=== PATIENT | male | born 1955 | race Caucasian/White ===

== ENCOUNTER 2016-07-30 05:53 | Observation (INO) ==
[2016-07-30] MEDS ORDERED: Aspirin 81 MG TAB.CHEW PO ONE (06:06)
--- NOTE | 2016-07-30 06:13 | Emergency Department Note ---
Disposition Clinical Impression: Chest pain Qualifiers: Chest pain type: unspecified Qualified Code(s): R07.9 - Chest pain, unspecified Disposition: Admitted As Inpatient Condition: Good Chest Pain HPI - General Chief Complaint: ED Chest Pain Stated Complaint: Chest Pressure Source: patient Mode of arrival: ambulatory Limitations: no limitations Vital Signs Reviewed: Yes Nursing Notes Reviewed: Yes - History of Present Illness Pt complaint: chest pain Onset (ago): week(s) (1) Duration: intermittent Onset: during rest Pain Location: substernal Quality: other (pressure) Pain Radiation: none Improves with: nothing Worsens with: nothing Associated symptoms: Reports: palpitations. Denies: vomiting, diaphoresis, dyspnea, sense of impending doom, syncope, leg swelling Treatments prior to arrival chest pain: aspirin - Related Data Home Medications Medication Instructions Recorded Confirmed Amitriptyline HCl 75 mg PO HS 07/30/16 07/30/16 Atenolol [Tenormin] 50 mg PO BID 07/30/16 07/30/16 Atorvastatin Calcium [Lipitor] 20 mg PO QAM 07/30/16 07/30/16 Baclofen [Lioresal] 10 mg PO TID 07/30/16 07/30/16 Lisinopril [Zestril] 40 mg PO HS 07/30/16 07/30/16 Ranitidine HCl [Zantac] 150 mg PO BID PRN 07/30/16 07/30/16 Zolpidem Tartrate [Ambien Cr] 12.5 mg PO HS PRN 07/30/16 07/30/16 Allergies Allergy/AdvReac Type Severity Reaction Status Date / Time No Known Allergies Allergy Verified 07/30/16 05:57 All systems ED: reviewed and negative except as stated. Constitutional: Denies: fever, chills, weakness Respiratory: Denies: cough, dyspnea, wheezes, hemoptysis Gastrointestinal: Denies: nausea, vomiting Chest Pain PMH - Past Medical History Medical history: Reports: hyperlipidemia, hypertension, other - Social History Smoking Status: Never smoker Alcohol use: Reports: heavy Drug use: Reports: none Physical Exam - General Limitations: no limitations General appearance: alert, in no apparent distress - Head Head exam: atraumatic, normocephalic, normal inspection - Eye Eye exam: Present: normal appearance, PERRL, EOMI - Expanded Eye Exam Pupils: Left: reactive - ENT ENT exam: normal exam, normal oropharynx, mucous membranes moist - Expanded ENT Exam External ear exam: Present: normal external inspection Mouth exam: Present: normal external inspection Teeth exam: Present: normal inspection Throat exam: Present: normal inspection - Neck Neck exam: Present: normal inspection, full ROM, trachea midline - Chest Chest inspection: Present: normal inspection, symmetric chest wall rise - Respiratory Respiratory exam: Present: normal lung sounds bilaterally - Cardiovascular Cardiovascular exam: Present: regular rate, normal rhythm, normal heart sounds - Abdominal Exam Abdominal exam: Present: soft, Non-Tender. Absent: tenderness, distention, guarding, rebound, rigidity - Extremities Exam Extremities exam: Present: normal inspection, full ROM. Absent: tenderness, pedal edema - Expanded Upper Extremity Exam Shoulder exam: Present: normal inspection, full ROM Arm exam: Present: normal inspection, full ROM Elbow exam: Present: normal inspection, full ROM Forearm/Wrist exam: Present: normal inspection, full ROM Hand exam: Present: normal inspection, full ROM Vascular exam: Normal: capillary refill, radial pulse - Expanded Lower Extremity Exam Hip/Pelvis exam: Present: normal inspection, full ROM Upper leg exam: Present: normal inspection, full ROM Knee exam: Present: normal inspection, full ROM Lower leg exam: Present: normal inspection, full ROM Ankle exam: Present: normal inspection, full ROM Foot/toe exam: Present: normal inspection, full ROM Neurovascular/Tendon exam: Absent: motor deficit, sensory deficit, tendon deficit - Back Exam Back exam: Present: normal inspection, full ROM. Absent: tenderness - Neurological Exam Neurological exam: Present: alert, oriented X3 - Expanded Neurological Exam Patient oriented to: Present: person, place, time Coma Scale Eye Opening: Spontaneous Coma Scale Motor Response: Obeys Commands Coma Scale Verbal Response: Oriented Coma Scale Total: 15 - Psychiatric Psychiatric exam: Present: normal affect, normal mood - Skin Skin exam: Present: warm, dry, intact, normal color Course Vital Signs Temperature 97.4 F L 07/30/16 05:55 Pulse Rate 86 07/30/16 05:55 Respiratory Rate 18 07/30/16 05:55 Blood Pressure 149/91 07/30/16 05:55 O2 Sat by Pulse Oximetry 99 07/30/16 05:55 Temperature 97.7 F 07/30/16 23:52 Pulse Rate 71 07/30/16 23:52 Respiratory Rate 14 07/30/16 23:52 Blood Pressure 120/75 07/30/16 23:52 O2 Sat by Pulse Oximetry 96 07/30/16 23:52 Oxygen Delivery Oxygen Delivery Room Air Chest Pain - Differential Diagnosis Likely: stable angina, unstable angina pectoris, atypical chest pain, st elevation myocardial infraction, chest pain - Lab Data Result diagrams: 07/30/16 06:25 07/30/16 06:25 Lab Results 07/30/16 07/30/16 07/30/16 Range/Units 06:25 06:25 06:25 WBC 7.3 (4.3-11.1) K/mcL RBC 4.48 (4.19-5.50) M/mcL Hgb 13.5 (12.9-16.9) g/dL Hct 40.1 (37.5-50.1) % MCV 89.5 (83.0-100.0) fL MCH 30.1 (28.0-33.3) pg MCHC 33.7 (31.6-35.5) g/dL RDW 12.9 (11.5-14.5) % Plt Count 245 (140-400) K/mcL MPV 9.5 (9.4-12.4) fL Immature Gran % 0.8 (0-4) % Seg Neutrophils % 66.8 % Lymphocytes % 21.9 % Monocytes % 7.9 % Eosinophils % 1.9 % Basophils % 0.7 % Neutrophils # 4.9 (1.6-8.9) K/mcL Lymphocytes # 1.6 (0.6-4.6) K/mcL Monocytes # 0.6 (0.0-1.3) K/mcL Eosinophils # 0.1 (0.0-0.6) K/mcL Basophils # 0.1 (0.0-0.2) K/mcL PT 10.3 (9.4-12.1) Seconds INR 1.0 APTT 31.9 (26.0-36.0) Seconds Sodium 137 (136-145) mEq/L Potassium 4.5 (3.5-4.5) mEq/L Chloride 105 (98-109) mEq/L Carbon Dioxide 20 (19-29) mEq/L BUN 22 (8-26) mg/dL Creatinine 1.00 (0.72-1.25) mg/dL Est GFR ( Amer) > 60 (> 60) Est GFR (Non-Af Amer) > 60 (> 60) BUN/Creatinine Ratio 22 (6-26) Glucose 113 H (70-99) mg/dL Est Mean Plasma Glucose mg/dl Hemoglobin A1c ( - 5.6) % Calculated Osmolality 288 (280-300) Calcium 9.4 (8.6-10.8) mg/dL Troponin I (0-0.03) ng/mL TSH 4.281 (0.350-4.840) mcIU/mL 07/30/16 07/30/16 Range/Units 06:25 06:25 WBC (4.3-11.1) K/mcL RBC (4.19-5.50) M/mcL Hgb (12.9-16.9) g/dL Hct (37.5-50.1) % MCV (83.0-100.0) fL MCH (28.0-33.3) pg MCHC (31.6-35.5) g/dL RDW (11.5-14.5) % Plt Count (140-400) K/mcL MPV (9.4-12.4) fL Immature Gran % (0-4) % Seg Neutrophils % % Lymphocytes % % Monocytes % % Eosinophils % % Basophils % % Neutrophils # (1.6-8.9) K/mcL Lymphocytes # (0.6-4.6) K/mcL Monocytes # (0.0-1.3) K/mcL Eosinophils # (0.0-0.6) K/mcL Basophils # (0.0-0.2) K/mcL PT (9.4-12.1) Seconds INR APTT (26.0-36.0) Seconds Sodium (136-145) mEq/L Potassium (3.5-4.5) mEq/L Chloride (98-109) mEq/L Carbon Dioxide (19-29) mEq/L BUN (8-26) mg/dL Creatinine (0.72-1.25) mg/dL Est GFR ( Amer) (> 60) Est GFR (Non-Af Amer) (> 60) BUN/Creatinine Ratio (6-26) Glucose (70-99) mg/dL Est Mean Plasma Glucose 108 mg/dl Hemoglobin A1c 5.4 ( - 5.6) % Calculated Osmolality (280-300) Calcium (8.6-10.8) mg/dL Troponin I 0.00 (0-0.03) ng/mL TSH (0.350-4.840) mcIU/mL
[2016-07-30 06:38] LABS: Prothrombin Time 10.3 Seconds (9.4-12.1)
[2016-07-30 06:41] LABS: Activated Partial Thrombo Time 31.9 Seconds (26.0-36.0)
[2016-07-30 06:46] LABS: BUN/Creatinine Ratio 22 (6-26); Blood Urea Nitrogen 22 mg/dL (8-26); Calcium 9.4 mg/dL (8.6-10.8); Carbon Dioxide 20 mEq/L (19-29); Chloride 105 mEq/L (98-109); Glucose 113 mg/dL (70-99); Osmolality,Calculated 288 (280-300); Potassium 4.5 mEq/L (3.5-4.5); Sodium 137 mEq/L (136-145); eGFR For African Americans > 60 (> 60); eGFR For Non-African Americans > 60 (> 60)
[2016-07-30 07:08] LABS: Thyroid Stimulating Hormone 4.281 mcIU/mL (0.350-4.840)
[2016-07-30 07:13] LABS: Basophils # 0.1 K/mcL (0.0-0.2); Basophils % 0.7 %; Eosinophils # 0.1 K/mcL (0.0-0.6); Eosinophils % 1.9 %; Hematocrit 40.1 % (37.5-50.1); Hemoglobin 13.5 g/dL (12.9-16.9); Immature Granulocytes % 0.8 % (0-4); Lymphocytes # 1.6 K/mcL (0.6-4.6); Lymphocytes % 21.9 %; Mean Corpuscular HGB Conc 33.7 g/dL (31.6-35.5); Mean Corpuscular Hemoglobin 30.1 pg (28.0-33.3); Mean Corpuscular Volume 89.5 fL (83.0-100.0); Mean Platelet Volume 9.5 fL (9.4-12.4); Monocytes # 0.6 K/mcL (0.0-1.3); Monocytes % 7.9 %; Neutrophils # 4.9 K/mcL (1.6-8.9); Platelet Count 245 K/mcL (140-400); Red Blood Count 4.48 M/mcL (4.19-5.50); Red Cell Distribution Width 12.9 % (11.5-14.5); Segmented Neutrophils % 66.8 %
--- NOTE | 2016-07-30 07:36 | Emergency Department Note ---
Disposition Clinical Impression: Chest pain Qualifiers: Chest pain type: unspecified Qualified Code(s): R07.9 - Chest pain, unspecified Disposition: Admitted As Inpatient Condition: Good Referrals: NO,PCP [Primary Care Provider] - Time of Disposition: 08:[address] [facility] - General Chief complaint: ED Chest Pain Stated complaint: Chest Pressure Time Seen by Provider: 07/30/16 07:07 Source: patient Mode of arrival: ambulatory Limitations: no limitations - History of Present Illness Pain Scale: 2 - Related Data Allergies Allergy/AdvReac Type Severity Reaction Status Date / Time No Known Allergies Allergy Verified 07/30/16 05:57 Constitutional: Denies: fever, chills, weakness Respiratory: Denies: cough, dyspnea, wheezes, hemoptysis Gastrointestinal: Denies: nausea, vomiting Past Medical History - Past Medical History Medical history: Reports: hyperlipidemia, hypertension, other - Social History Smoking Status: Never smoker Smokeless Tobacco Status: No Alcohol use: Reports: heavy Drug use: Reports: none Physical Exam - General Limitations: no limitations General appearance: alert, in no apparent distress Course Course Narrative: 61-year-old multiple risk factors comes in complaining of intermittent chest pain. Workup here in the emergency department is negative. - Reevaluation(s) Reevaluation #1: 61-year-old gentleman with risk factors of age, borderline diabetes, hypertension, family history who comes in with a 3 to four-day history of intermittent exertional chest tightness. Patient has had no recent cardiac workup. Workup here in the ER is negative we will admit for rule out. Time: 08:11 - Consultations Consultation #1: Discussed with Dr. Layne, admit. Time: 08:09 Vital Signs Temperature 97.4 F L 07/30/16 05:55 Pulse Rate 86 07/30/16 05:55 Respiratory Rate 18 07/30/16 05:55 Blood Pressure 149/91 07/30/16 05:55 O2 Sat by Pulse Oximetry 99 07/30/16 05:55 Temperature 97.4 F L 07/30/16 05:55 Pulse Rate 61 07/30/16 07:38 Respiratory Rate 16 07/30/16 07:38 Blood Pressure 134/87 07/30/16 07:38 O2 Sat by Pulse Oximetry 98 07/30/16 07:38 Oxygen Delivery Oxygen Delivery Room Air Medical Decision Making - Lab Data Result diagrams: 07/30/16 06:25 07/30/16 06:25 Lab Results 07/30/16 07/30/16 07/30/16 Range/Units 06:25 06:25 06:25 WBC 7.3 (4.3-11.1) K/mcL RBC 4.48 (4.19-5.50) M/mcL Hgb 13.5 (12.9-16.9) g/dL Hct 40.1 (37.5-50.1) % MCV 89.5 (83.0-100.0) fL MCH 30.1 (28.0-33.3) pg MCHC 33.7 (31.6-35.5) g/dL RDW 12.9 (11.5-14.5) % Plt Count 245 (140-400) K/mcL MPV 9.5 (9.4-12.4) fL Immature Gran % 0.8 (0-4) % Seg Neutrophils % 66.8 % Lymphocytes % 21.9 % Monocytes % 7.9 % Eosinophils % 1.9 % Basophils % 0.7 % Neutrophils # 4.9 (1.6-8.9) K/mcL Lymphocytes # 1.6 (0.6-4.6) K/mcL Monocytes # 0.6 (0.0-1.3) K/mcL Eosinophils # 0.1 (0.0-0.6) K/mcL Basophils # 0.1 (0.0-0.2) K/mcL PT 10.3 (9.4-12.1) Seconds INR 1.0 APTT 31.9 (26.0-36.0) Seconds Sodium 137 (136-145) mEq/L Potassium 4.5 (3.5-4.5) mEq/L Chloride 105 (98-109) mEq/L Carbon Dioxide 20 (19-29) mEq/L BUN 22 (8-26) mg/dL Creatinine 1.00 (0.72-1.25) mg/dL Est GFR ( Amer) > 60 (> 60) Est GFR (Non-Af Amer) > 60 (> 60) BUN/Creatinine Ratio 22 (6-26) Glucose 113 H (70-99) mg/dL Calculated Osmolality 288 (280-300) Calcium 9.4 (8.6-10.8) mg/dL Troponin I (0-0.03) ng/mL TSH 4.281 (0.350-4.840) mcIU/mL 07/30/16 Range/Units 06:25 WBC (4.3-11.1) K/mcL RBC (4.19-5.50) M/mcL Hgb (12.9-16.9) g/dL Hct (37.5-50.1) % MCV (83.0-100.0) fL MCH (28.0-33.3) pg MCHC (31.6-35.5) g/dL RDW (11.5-14.5) % Plt Count (140-400) K/mcL MPV (9.4-12.4) fL Immature Gran % (0-4) % Seg Neutrophils % % Lymphocytes % % Monocytes % % Eosinophils % % Basophils % % Neutrophils # (1.6-8.9) K/mcL Lymphocytes # (0.6-4.6) K/mcL Monocytes # (0.0-1.3) K/mcL Eosinophils # (0.0-0.6) K/mcL Basophils # (0.0-0.2) K/mcL PT (9.4-12.1) Seconds INR APTT (26.0-36.0) Seconds Sodium (136-145) mEq/L Potassium (3.5-4.5) mEq/L Chloride (98-109) mEq/L Carbon Dioxide (19-29) mEq/L BUN (8-26) mg/dL Creatinine (0.72-1.25) mg/dL Est GFR ( Amer) (> 60) Est GFR (Non-Af Amer) (> 60) BUN/Creatinine Ratio (6-26) Glucose (70-99) mg/dL Calculated Osmolality (280-300) Calcium (8.6-10.8) mg/dL Troponin I 0.00 (0-0.03) ng/mL TSH (0.350-4.840) mcIU/mL
[2016-07-30] MEDS ORDERED: Naloxone 0.4 MG/ML INJ IVP PRN (10:46)
[2016-07-30] MEDS ORDERED: Acetaminophen 325 MG TABLET PO PRN (10:46)
[2016-07-30] MEDS ORDERED: Ondansetron 4 MG/2 ML VIAL IVP PRN (10:46)
[2016-07-30] MEDS ORDERED: MOM Conc 10 ML UD.LIQ PO PRN (10:46)
[2016-07-30] MEDS ORDERED: *HR* HYDROcodone/Acet 5/325 mg TABLET PO PRN (10:46)
[2016-07-30] MEDS ORDERED: Famotidine 20 MG TABLET PO PRN (10:53)
--- NOTE | 2016-07-30 11:02 | Internal Med History&Physical ---
<Addie Aguayo - Last Filed: 07/30/16 12:17> Date of Encounter: 07/30/16 Time of Encounter: 10:20 Assessment and Plan (1) Chest pain Current visit: Yes Status: Acute Pt has 1 week history of midsternal chest pain without radiation, SOB, diaphoresis, or n/v. Worse in the afternoon at work, lasts for hours. Pain does not get worse with movement, breathing,exertion, or palpation. Pt states that he is on Zantac 150mg po bid for GERD and that pain may be related to that. Epigastric area is tender to palpation, but it does not recreate the pain. Takes beta melany daily for 30+ year history of tachycardia. Pt has risk factors for heart disease including hyperlipidemia, hypertension, and what he describes as elevating fasting blood glucose. Continuous cardiac monitoring Echo Stress test Asa 81mg po daily Continue home medications including Zantac Serial troponins Monitor labs A1c Qualifiers: Chest pain type: unspecified Qualified Code(s): R07.9 - Chest pain, unspecified (2) GERD (gastroesophageal reflux disease) Current visit: Yes Status: Chronic Pt with history of GERD. Was taking Protonix, but was concerned about bone loss , so he switched to Zantac 150mg po BID. Denies worsening or change in symptoms , however, epigastric area is tender to palpation, and reflux cannot be ruled out as the cause of his chest pain. Could discuss with pt adding another medication for control prior to discharge. Continue Zantac 150mg po BID Monitor labs Qualifiers: Esophagitis presence: esophagitis presence not specified Qualified Code(s) : K21.9 - Gastro-esophageal reflux disease without esophagitis Internal Medicine - H&P: HPI Chief complaint: chest pain Admitted From: Home Plans for Post Hospital Care: Home History of present illness: Mr. Desir is a 61 year old male with hyperlipidemia and HTN , admitted for 1 week history of midsternal chest pressure without radiation or other associated symptoms. Rates 5/10. Pressure primarily occurs later in the afternoon when he is at work and lasts for hours. There is no correlation with food intake or exertion. Pain is not reproduceable with palpation, inspiration, or movement. Past Med Surg Social Fam HX - Past Medical History Medical history: hyperlipidemia, hypertension, other - Past Surgical History Surgical History: orthopedic, other - Social History Smoking Status: Never smoker Smokeless Tobacco Status: No Alcohol use: heavy Drug use: none Internal Medicine - H&P: Meds Amitriptyline HCl 75 mg PO HS 07/30/16 [History] Atenolol [Tenormin] 50 mg PO BID 07/30/16 [History] Atorvastatin Calcium [Lipitor] 20 mg PO QAM 07/30/16 [History] Baclofen [Lioresal] 10 mg PO TID 07/30/16 [History] Lisinopril [Zestril] 40 mg PO HS 07/30/16 [History] Ranitidine HCl [Zantac] 150 mg PO BID PRN 07/30/16 [History] Zolpidem Tartrate [Ambien Cr] 12.5 mg PO HS PRN 07/30/16 [History] Allergies No Known Allergies Allergy (Verified 07/30/16 05:57) All Systems PM: A 10-system review of systems was performed and is negative for pertinent findings except as documented above in the HPI. - Constitutional Constitutional: no chills, no fever(s) - Cardiovascular Cardiovascular ROS IM: chest pain, edema, no dyspnea, no palpitations Additional comments: Pt normally has pedal edema, has not become worse. - Respiratory Respiratory: no cough, no wheezing, no pain on inspiration, no chest congestion - Gastrointestinal Gastrointestinal: no diarrhea, no nausea, no vomiting - Musculoskeletal Musculoskeletal ROS IM: no numbness, no tingling - Constitutional Vitals: Temp Pulse Resp BP Pulse Ox 98.0 F 68 15 142/88 98 07/30/16 09:07 07/30/16 09:07 07/30/16 09:07 07/30/16 09:07 07/30/16 09:07 General appearance: Present: A&O X 3, pleasant, answers questions appropriately - Neck Neck exam general surgery: Present: normal inspection. Absent: tenderness, thyromegaly - Respiratory Respiratory exam: Present: CTAB. Absent: accessory muscle use, chest wall tenderness, decreased breath sounds, rhonchi, wheezes - Cardiovascular Cardiovascular exam: Present: RRR, +S1, +S2. Absent: diastolic murmur, JVD, systolic murmur - GI/Abdominal GI/Abdominal exam: Present: distended, normal bowel sounds, soft. Absent: pulsatile mass, tenderness - Extremities Exam Extremities exam: Present: full ROM, pedal edema, warm, radial pulses palpable and symetrical. Absent: calf tenderness Additional comments: +1 non-pitting edema to BLE, normal for pt. +2 pedal pulses JESI. - Neurological Exam Neurological exam: Present: alert, oriented X3, no focal deficits - Skin Skin exam: Present: dry, normal color, warm Internal Med - H&P Results - Labs CBC & Chem 7: 07/30/16 06:25 07/30/16 06:25 - EKG Data EKG shows normal: sinus rhythm - EKG Data Prior EKG available for review: yes When compared to previous EKG: there is no significant change Interpretation IM: normal EKG <Fox Layne - Last Filed: 07/30/16 16:30> Date of Encounter: 07/30/16 Internal Medicine - H&P: HPI History of present illness: Mr. Desir is a 61 year old male All Systems PM: A 10-system review of systems was performed and is negative for pertinent findings except as documented above in the HPI. - Constitutional Vitals: Temp Pulse Resp BP Pulse Ox 97.9 F 74 16 143/82 96 07/30/16 15:27 07/30/16 15:27 07/30/16 15:27 07/30/16 15:27 07/30/16 15:27 Internal Med - H&P Results - Labs CBC & Chem 7: 07/30/16 06:25 07/30/16 06:25 Labs: Cardiac Enzymes 07/30/16 Range/Units 12:28 Troponin I 0.00 (0-0.03) ng/mL - Attending Attestation I examined this patient and my medical decision-making was reviewed with the Advanced Practice Provider. I agree with the documented findings, disposition and treatment plan as described except to the extent set forth below. On exam he is in no Distress, heart regular rhythm S1-S2 with no murmurs or gallops. Lungs are clear. Plan: Atypical chest pain we will rule out ACS, place on telemetry, obtain stress test in the morning, obtain echocardiogram.
[2016-07-30] MEDS ORDERED: Baclofen 10 MG TABLET PO PRN (11:21)
[2016-07-30 12:08] LABS: Hemoglobin A1C 5.4 %
[2016-07-30] MEDS ORDERED: Baclofen 10 MG TABLET PO SCH (15:00)
[2016-07-30] MEDS ORDERED: Lisinopril 20 MG TABLET PO SCH (21:00)
[2016-07-31] MEDS ORDERED: Temazepam 15 MG CAPSULE PO ONE (01:35)
[2016-07-31 05:38] LABS: Basophils % 0.5 %; Eosinophils # 0.2 K/mcL (0.0-0.6); Eosinophils % 1.9 %; Hematocrit 37.9 % (37.5-50.1); Hemoglobin 12.9 g/dL (12.9-16.9); Immature Granulocytes % 0.7 % (0-4); Lymphocytes # 1.8 K/mcL (0.6-4.6); Lymphocytes % 22.1 %; Mean Corpuscular Hemoglobin 30.3 pg (28.0-33.3); Mean Platelet Volume 9.3 fL (9.4-12.4); Monocytes # 0.8 K/mcL (0.0-1.3); Monocytes % 9.8 %; Neutrophils # 5.4 K/mcL (1.6-8.9); Platelet Count 200 K/mcL (140-400); Red Blood Count 4.26 M/mcL (4.19-5.50)
[2016-07-31 05:55] LABS: BUN/Creatinine Ratio 17 (6-26); Blood Urea Nitrogen 18 mg/dL (8-26); Calcium 8.9 mg/dL (8.6-10.8); Carbon Dioxide 22 mEq/L (19-29); Chloride 107 mEq/L (98-109); Glucose 107 mg/dL (70-99); Osmolality,Calculated 288 (280-300); Potassium 4.1 mEq/L (3.5-4.5); Sodium 138 mEq/L (136-145); eGFR For African Americans > 60 (> 60); eGFR For Non-African Americans > 60 (> 60)
[2016-07-31 07:21] VITALS: BP 109/67
[2016-07-31] MEDS ORDERED: Aspirin 81 MG TAB.CHEW PO SCH (09:00)
--- NOTE | 2016-07-31 09:40 | ECHO - Doppler Report ---
Echocardiogram Name: FAIZAN YAÑEZ Date of Study: 07/30/2016 Date: 1955 Ht: 66.0 in Medical Record#: [id number] Age: 61 Wt: 200.0 lb Gender: Male BSA: 2 Order #: [id number] Location: [facility] Room #: [id number] Reading Physician: Lucio Noonan MD, [facility] Dehydrating Press Operator: Isidra Jim RDCS Ordering Physician: Addie Aguayo CNP Primary Physician: None Indications: Chest pain Impressions: Normal left ventricular size and systolic function, LVEF 55%. Mild left ventricular diastolic dysfunction. Normal right ventricular size and function. No significant valvular dysfunction. Unable to estimate RVSP due to lack of TR jet. Left Ventricular Wall Motion: Rest Echo Findings All wall segments showed normal motion. Findings: Study Quality * Suboptimal echo windows. ECG Findings * Normal sinus rhythm. Left Ventricle * Normal left ventricular size and systolic function, LVEF 55%. * Normal LV wall thickness. * Mild left ventricular diastolic dysfunction. Right Ventricle * Normal right ventricular size and function. Left Atrium * Normal left atrial size. Right Atrium * Normal right atrial size. Aorta * Normally sized aortic root. Pericardium * There is no pericardial effusion present. IVC * The IVC is not well evaluated. Aortic Valve * Aortic valve not well visualized. Appears trileaflet. * Normal aortic valve function. Mitral Valve * Normal mitral valve structure. * Normal mitral valve function. Tricuspid Valve * Tricuspid valve not well visualized. * Normal tricuspid valve function. * Unable to estimate RVSP due to lack of TR jet. Pulmonic Valve * Pulmonic valve not well visualized. * Normal pulmonic valve function. History Hypertension Hypercholesteremia Measurements: BP: 143/ 82 2D Normal Values RVIDd: 3.21 cm IVSd: .80 cm 0.6 - 1.0 cm LVIDd: 5.50 cm 3.7 - 5.6 cm LVPWd: 1.00 cm 0.6 - 1.1 cm LVIDs: 3.60 cm 1.5 - 3.6 cm AO: 3.00 cm < 4.0 cm LA volume: 36 Mitral Valve Peak E:.66 m/sec Peak A:.89 m/sec E/A Ratio:0.7 Updated by Lucio Noonan MD, [facility] on 07/31/2016 9:35:29 AM Wall Motion Trinh: 1=Normal, 2=Hypokinesis, 3=Akinesis, 4=Dyskinesis, 5=Aneurysmal, 6=Hyperkinetic, X=Not Visualized (Blank)=Missing
--- NOTE | 2016-07-31 10:38 | Nuclear Medicine Stress Report ---
Exercise Nuclear Stress Name: Eddie Desir Date of Study: 07/31/2016 Date: 1955 Ht: 66.0 in Medical Record#: [id number] Age: 61 Wt: 204.0 lb Gender: Male Order #: [id number] Location: [facility] IP Room: [facility] Supervising Provider: Cristiano Seo CNP Reading Physician: Lucio Noonan MD, [facility] Ordering Physician: Belen Lawrence CNP Primary Care Physician: None Stress Technologist: Jose Sewell, BUSINESS LAW[employer], [facility] Pediatric Speech Language Pathologist: Bahman Acosta Indications: Chest Pain Impression: The exercise capacity was good. Exercise ECG is negative for ischemia. Gated LVEF > 70%. Perfusion imaging was negative for ischemia or infarct. History: Hypertension Hypercholesteremia Stress Test Summary: Stress Test Type: Treadmill Protocol: Asim Baseline Information: Initial Heart Rate: 77 Blood Pressure: 106/76 Stress Information: Stress Time: 11 min 30 sec Test Terminated Due to (primary): Dyspnea Maximum Blood Pressure: 150/70 Maximum Heart Rate: 137 Percent Maximum Heart Rate Achieved: 85 Double Product: [id number] METS Reached: 12.8 Symptoms: Shortness of breath, Fatigue Nuclear Summary: SPECT myocardial perfusion imaging using Tc99m Sestamibi given intravenously was performed at rest and following cardiac stress testing. The resting images were obtained following initial dose of 10.6 mCi. Following stress an additional dose of 35.6 mCi was given at peak exercise or 30 seconds post regadenoson infusion. Findings: Stress Note * Resting ECG demonstrated normal sinus rhythm. * No baseline arrhythmias were noted. * The exercise capacity was good. * Patient had no chest pain during stress. * Rare PVCs noted during exercise. * Exercise ECG is negative for ischemia. Hemodynamic responses * Normal hemodynamic responses to exercise. Study Quality * Study quality is good. Gated EF > 70% * Gated LVEF > 70%. Left Ventricle * The left ventricle is not dilated. * Normal Segmental Perfusion in rest. * Normal segmental perfusion in stress. TID * No evidence of transient ischemic dilatation. Updated by Lucio Noonan MD, [facility] on 07/31/2016 10:32:38 AM electronically signed on 07/31/2016 10:33:06 AM with status of Final
--- NOTE | 2016-07-31 11:28 | Discharge Summary ---
Date of Encounter: 07/31/16 Time of Encounter: 11:15 - Discharge Diagnosis (1) Chest pain Priority: Primary Status: Acute Qualifiers: Chest pain type: unspecified Qualified Code(s): R07.9 - Chest pain, unspecified (2) GERD (gastroesophageal reflux disease) Priority: Secondary Status: Chronic Qualifiers: Esophagitis presence: esophagitis presence not specified Qualified Code(s) : K21.9 - Gastro-esophageal reflux disease without esophagitis (3) HTN (hypertension) Priority: Primary Status: Acute Qualifiers: Hypertension type: essential hypertension Qualified Code(s): I10 - Essential (primary) hypertension - Discharge Medications Home Medications: Amitriptyline HCl 75 mg PO HS 07/30/16 [History] Atenolol [Tenormin] 50 mg PO BID 07/30/16 [History] Atorvastatin Calcium [Lipitor] 20 mg PO QAM 07/30/16 [History] Baclofen [Lioresal] 10 mg PO TID 07/30/16 [History] Lisinopril [Zestril] 40 mg PO HS 07/30/16 [History] Ranitidine HCl [Zantac] 150 mg PO BID PRN 07/30/16 [History] Zolpidem Tartrate [Ambien Cr] 12.5 mg PO HS PRN 07/30/16 [History] Allergies/Adverse Reactions: Allergies No Known Allergies Allergy (Verified 07/30/16 05:57) Procedures/tests Complete & Pending: Procedures Performed prior 72 hours Category Date Time Status NM atul perf SPECT multi [NM] Routine Exams 07/31/16 06:00 Taken EV echocardiogram Routine Y 07/30/16 10:52 Completed SP exercise nuclear stress Routine Y 07/31/16 07:30 Completed Date of admission: 07/30/16 08:21 Primary care physician: PCP NO - Patient Status Disposition: Home, Self-Care Condition: Good Functional capacity at discharge: independent ambulation Overall status at discharge: patient is back to baseline - Discharge Instructions Instructions: Chest Pain (DC), Gastroesophageal Reflux Disease (DC) Follow Up With: NO,PCP [Primary Care Provider] - (f/u with pcp in 1 week) Additional Instructions: check BP daily, bring log to doc appt. f/u with pcp for htn, GERd, weight loss program. - Diet and Activity Activity: resume usual activities as tolerated Diet: low salt diet Interval History: Patient denies any chest pain. No shortness of breath. He is ambulating well. He is eager to go home. Hospital course: Mr. Desir is a 61 year old male with past medical history hypertension, hyperlipidemia, and GERD who presented with a chief complaint of atypical chest pain. He worked as a nurse. Troponin was negative. CBC, PT, INR, BMP, A1c and TSH were negative. Nuclear stress test was negative for any skin or infarct. Echocardiogram revealed LVEF 55%, left ventricular diastolic dysfunction. He remained asymptomatic. No telemetry events. This chest pain could be secondary from GERD. PLAN: Check blood pressure daily at home. Follow-up with primary care physician for hypertension, GERD, weight loss program. - Time Spent with Patient Total time spent providing and/or coordinating discharge services: - Constitutional Vitals: Temp Pulse Resp BP Pulse Ox 97.5 F L 69 18 109/67 99 07/31/16 07:20 07/31/16 07:20 07/31/16 07:20 07/31/16 07:20 07/31/16 07:20 General appearance: Present: cooperative, A&O X 3, pleasant, no acute distress, obese, answers questions appropriately - Eye Eye exam: Present: PERRL, sclera anicteric - Neck Neck exam general surgery: Present: supple, trachea midline. Absent: lymphadenopathy - Respiratory Respiratory exam: Present: CTAB - Cardiovascular Cardiovascular exam: Present: RRR - GI/Abdominal GI/Abdominal exam: Present: normal bowel sounds, soft. Absent: distended, tenderness - Extremities Exam Extremities exam: Absent: pedal edema - Back Exam Back exam: Absent: CVA tenderness (L), CVA tenderness (R) - Neurological Exam Neurological exam: Present: alert, oriented X3, strengths equal and symetr throughout. Absent: facial droop, speech deficit
--- NOTE | 2016-08-01 05:25 | Electrocardiograph Report ---
Test Date: 2016-07-30 Pat Name: Eddie Desir Department: [id number] Room: [facility] Gender: M Manager Integrity: EC : 1955 Requested By: Mauro Burnett Order Number: [id number] Reading MD: Lex Lyles MD Measurements Intervals [place] Rate: 72 P: -1 MI: 153 QRS: -6 QRSD: 88 T: 3 QT: 369 QTc: 392 Interpretive Statements SINUS RHYTHM Electronically Signed On 08-01-16 05:23:53 EST by Lex Lyles MD
== END 2016-07-31 11:40 | disposition home or self-care (01) ==
LOC: 3BNU 05:53 → EMEROO 05:53 → SUATTDRO 08:21 → 3BNU 09:03
PROVIDERS: ADMIT Internal Medicine; ATTEND Internal Medicine